=== PATIENT | female | born 2000 ===

== ENCOUNTER → 2019-02-27 | Day surgery (SDC) | payer OTHER ==
[~2019-02-27] MED LIST: ORTHO TRI-CYCL1 EAC1 PO
== END | disposition home or self-care (01) ==
LOC: ADM 02-24 09:00 → CIR.AMB 06:12
PROVIDERS: Plastic Surgery
PROC: 0H0V0KZ Alteration of Bilateral Breast with Nonautologous Tissue Substitute, Open Approach (ICD-10-PCS; principal; 2019-02-27 11:00)
DX: N64.82 Hypoplasia of breast (principal)

== ENCOUNTER 2023-05-27 12:55 | Outpatient (CLI) | payer OTHER | END 2023-05-27 12:59 | disposition home or self-care (01) | LOC: LAB 12:55 | DX: Z20.828 Contact with and (suspected) exposure to other viral communicable diseases (principal) ==